=== PATIENT | male | born 1995 | race Caucasian/White ===

== ENCOUNTER 2017-09-09 22:52 | Emergency (ER) | payer OTHER ==
[2017-09-09 22:56] VITALS: RESP 18
[2017-09-09] MEDS ORDERED: BENZONATATE 100 MG CAP PO ONE (23:45)
[2017-09-09] MEDS ORDERED: predniSONE 20 MG TAB PO ONE (23:46)
--- NOTE | 2017-09-09 23:49 | EDPHY ---
H & P Stated Complaint: fever, N/V, CRISTOBAL Source: Patient Exam Limitations: No limitations - Personal History Current Tetanus/Diphtheria Vaccine: Yes - Medical/Surgical History Hx Asthma: No Hx Chronic Respiratory Disease: No Hx Diabetes: No Hx Cardiac Disease: Yes Hx Renal Disease: No Hx Cirrhosis: No Hx Alcoholism: No Hx HIV/AIDS: No Hx Splenectomy or Spleen Trauma: No Other PMH: sinus-node dysfunction - Social History Smoking Status: Current some day smoker Time Seen by Provider: 09/09/17 23:46 HPI/ROS: HPI: This is a 22-year-old male presents with Chief Complaint: fever, N/V, CRISTOBAL Location: Body Quality: Aches Duration: 2 days Signs and Symptoms: + fever, + chills, + fatigue, + body aches, + nausea, no neck stiffness, no sore throat, no abdominal pain, no diarrhea Timing: Worsening Severity: Moderate Context: Patient is a college student who studying for final exams presents with sudden onset of body aches and fatigue starting yesterday and then today he started to have fever accompanied by nausea, chills and dry cough. He denies any neck stiffness. He does have a mild generalized dull aching headache. He reports that he has been taking Tylenol and Advil with mild transient relief of the symptoms. He did not receive his influenza vaccine this year. Modifying Factors: See above Comment: ROS: see HPI Constitutional: + fever, + chills, no weight loss Eyes: No blurred vision Respiratory: No shortness of breath, + cough Cardiovascular: No chest pain Gastrointestinal: No nausea, no vomiting, no diarrhea Genitourinary: No dysuria Extremities: + myalgias Neurologic: No weakness, no numbness Skin: No rashes Hematologic: No bruising, no bleeding MEDICAL/SURGICAL/SOCIAL HISTORY: Medical history: Anxiety, sinus node dysfunction Surgical history: Denies Social history: Local college student CONSTITUTIONAL: Ill but nontoxic-appearing young adult white male, awake and alert, no obvious distress HEENT: Atraumatic and normocephalic, PERRL, EOMI. Tympanic membranes clear. Oropharynx clear, tonsils 1+ no erythema, no exudate and moist pink mucosa. Airway patent. No lymphadenopathy. No meningismus. Cardiovascular: Normal S1/S2, mild tachycardia, regular rhythm, without murmur rub or gallop. PULMONARY/CHEST: Symmetrical and nontender. Clear to auscultation bilaterally. Good air movement. No accessory muscle usage. ABDOMEN: Soft, nondistended, nontender, no rebound, no guarding, no peritoneal signs, no masses or organomegaly. No CVAT. EXTREMITIES: 2/2 pulses, strength 5/5, no deformities, no clubbing, no cyanosis or edema. NEUROLOGICAL: no focal neuro deficits. GCS 15. SKIN: Warm and dry, no erythema. no rash. Good capillary refill. (Mesha Burnette) Constitutional: Initial Vital Signs Temperature (C) 38.9 C H 09/09/17 22:53 Heart Rate 119 H 09/09/17 22:53 Respiratory Rate 18 09/09/17 22:53 Blood Pressure 119/94 H 09/09/17 22:53 O2 Sat (%) 96 09/09/17 22:53 O2 Delivery Mode Room Air Allergies/Adverse Reactions: azithromycin Allergy (Verified 09/09/17 22:56) Home Medications: Medication Instructions Recorded Benzonatate [Tessalon Pearles (RX)] 100 mg PO Q6 PRN #12 cap 09/10/17 Medical Decision Making ED Course/Re-evaluation: Influenza and oral medications ordered Influenza negative; suspect influenza like illness No signs of meningitis/sepsis/hypoxia/wheezing/pharyngitis/sinusitis Vital signs improved at discharge. Advised supportive care This patient was seen under the supervision of my secondary supervising physician. I evaluated care for this patient independently. Discussed this patient with Dr. Jaramillo who did not see the patient. (Mesha Burnette) Differential Diagnosis: Adult fever including but not limited to viral syndromes including influenza, strep pharyngitis, pneumonia and sepsis. (Mesha Burnette) PHYSICIAN DOCUMENTATION: The patient was evaluated and managed by the Physician Emergency Manager. My co- signature indicates that I have reviewed this chart and I agree with the findings and plan of care as documented. I am the secondary supervising physician. (Michelle Jaramillo) - Data Points Laboratory Results: 09/09/17 23:40 Nasal Influenza A PCR NEGATIVE FOR FLU A (NEGATIVE) Nasal Influenza B PCR NEGATIVE FOR FLU B (NEGATIVE) Medications Given: Discontinued Medications Benzonatate (Tessalon Pearles) 200 mg PO EDNOW ONE Stop: 09/09/17 23:46 Last Admin: 09/09/17 23:53 Dose: 200 mg Prednisone (Prednisone) 60 mg PO EDNOW ONE Stop: 09/09/17 23:47 Last Admin: 09/09/17 23:53 Dose: 60 mg Departure - Departure Disposition: Home, Routine, Self-Care Clinical Impression: Influenza-like illness Condition: Good Instructions: Benzonatate (By mouth), Influenza (ED) Additional Instructions: Please drink a minimum of 8-10 glasses of fluids per day which may include water , fluid electrolyte replacement drinks like Powerade and Gatorade. Take Tylenol 650 mg every 4 hours and/or Ibuprofen 600 mg every 8 hours with food as needed for pain/fever/body aches. Rest as much as possible until you are feeling better. Follow up with Orthopedics in 3-4 days if symptoms persist or worsen. Referrals: [facility] PH[facility] [Other] - As per Instructions Stand Alone Forms: School Excuse Prescriptions: Benzonatate [Tessalon Pearles (RX)] 100 mg PO Q6 PRN #12 cap PRN Reason: Cough, Moderate
[2017-09-10 01:04] VITALS: BP 123/62; PULSE 97; TEMP 101; O2SAT 95
== END 2017-09-10 01:04 | disposition home or self-care (01) ==
DX: J11.1 Influenza due to unidentified influenza virus with other respiratory manifestations (principal); F17.200 Nicotine dependence, unspecified, uncomplicated